=== PATIENT | female | born 1995 | race Hispanic/Latino ===

== ENCOUNTER 2018-10-07 16:38 | Emergency (ER) | payer OTHER, MEDICAID, SELFPAY ==
[2018-10-07 17:05] VITALS: BP 125/80; PULSE 100; RESP 13; TEMP 36.6; O2SAT 99
[2018-10-07 20:44] VITALS: BP 114/78; PULSE 99; RESP 16; TEMP 36.2; O2SAT 100
--- NOTE | 2018-10-07 21:43 | ED_ITS ---
HPI - Headache General Chief Complaint: Headache Stated Complaint: MIGRAINE FOR 1 WEEK Time Seen by Provider: 10/07/18 21:04 Source: patient Mode of arrival: ambulatory Limitations: no limitations History of Present Illness HPI Narrative: Patient has a longstanding history of migraines and states she has had a headache for about a week and a half. She states that the symptoms are consistent with her usual migraines, but that the pain is stronger than usual, and has not abated with Tylenol and ibuprofen. Patient states she has been nauseated but not vomiting. She denies any head injury, fever, nuchal rigidity, or other recent illness. She states that she is otherwise healthy. Patient states she saw a neurologist when she was in her teens, and has been having migraines since she was 11. She states she was tried on many different therapies for migraine, but that none were really effective. The patient states that she has headaches most days, but that they usually resolve on their own or with ibuprofen or Tylenol. She states that it was recommended that she try Botox or acupuncture, but she has chosen not to go that route at this point in time. No other complaints at this time. Patient states that her current headache is about a 710. Light makes worse, as does straining; nothing makes better. Review of Systems Review of Systems All systems reviewed & are unremarkable except as noted in HPI and below Constitutional Denies chills, Denies fever(s), Reports headache(s), Denies lethargy and Denies weakness Eyes Denies change in vision, Denies eye discharge, Denies irritation and Denies loss of vision ENT Ears, Nose, Mouth, and Throat: Denies change in voice, Reports headache(s), Denies neck pain and Denies sore throat Cardiovascular Denies chest pain, Denies irregular heart rhythm, Denies lightheadedness, Denies palpitations, Denies dyspnea, Denies dyspnea on exertion and Denies orthopnea Respiratory Denies cough, Denies dyspnea, Denies dyspnea on exertion and Denies wheezing Gastrointestinal Gastrointestinal: Denies abdominal pain, Denies change in bowel habits, Denies diarrhea, Reports nausea and Denies vomiting Genitourinary Denies hematuria, Denies flank pain, Denies urinary incontinence and Denies urinary urgency Musculoskeletal Denies neck pain Integumentary/Breasts Denies pruritus, Denies erythema, Denies rash and Denies wounds Neurologic Denies confusion, Reports headache(s), Denies loss of vision and Denies weakness Psychiatric Denies anxiety, Denies confusion, Denies depression, Denies homicidal ideation and Denies suicidal ideation Endocrine Denies palpitations Hematologic/Lymphatic Denies easy bruising Allergic/Immunologic Denies wheezing [facility] Medical History Migraine (Acute) Surgical History No pertinent past surgical history (Acute) Social History Smoking Status: Never smoker Exam Initial Vital Signs Initial Vital Signs: Vital Signs Temperature 97.8 F 10/07/18 17:05 Pulse Rate 100 H 10/07/18 17:05 Respiratory Rate 13 10/07/18 17:05 Blood Pressure 125/80 10/07/18 17:05 Pulse Oximetry 99 10/07/18 17:05 Const General: cooperative and well developed Nutritional Appearance: well nourished Orientation: alert, awake, oriented x3 and not confused [facility] Head: normocephalic and atraumatic Ears: external ears normal Nose: external nose normal and No nasal discharge Face and sinus: face symmetric and No dry mucous membranes Mouth: oral mucosae normal and moist mucous membranes Teeth and gingiva: dentition normal Eyes General: appearance normal, both eyes and all related structures Eyelids: eyelids normal Conjunctivae: conjunctivae normal Sclera: sclerae normal Pupils: PERRL EOM: EOM intact bilaterally Neck Neck: normal visual inspection, trachea midline, No lymphadenopathy, No midline deformity and No JVD Lymphatic: No lymphedema Chest Chest: normal inspection of the chest Resp Effort & Inspection: normal respiratory effort, able to speak in complete sentences, no respiratory distress and no use of accessory muscles Auscultation: clear to auscultation bilaterally, no rales, no rhonchi and no wheezes Cardio Rate: regular rate Rhythm: regular rhythm Heart Sounds: no click, no gallops, no murmurs and no rubs Pulses: normal peripheral pulses GI Inspection: non-distended Palpation: soft, no hepatosplenomegaly, No guarding, No pulsatile mass and No tender Back/Spine/Pelvis Back: No CVA tenderness Cervical Spine: cervical ROM normal and No pain with cervical ROM Thoracic/Lumbar Spine: thoracic and lumbar spine normal to inspection Skin General: no rashes or lesions noted, No jaundice and No petechiae Neuro General: alert, oriented x3, gait normal and no focal motor deficits Speech: speech normal Extrem General: full ROM, no clubbing, cyanosis or edema, no pedal edema and no calf tenderness Psych Appearance: well kempt Mental Status: mental status grossly normal Attitude: cooperative Thought Content: normal and suicidality Judgment: judgment good Course Course Narrative: Patient was well appearing in the emergency department, and symptoms were consistent with prior migraines, just worse this time. Patient was treated symptomatically with IV fluids, Benadryl, Zofran, Reglan, and Toradol. She reported improvement in her headache, but was still having significant discomfort, so she was given a dose of Dilaudid in addition to the above. This did eradicating remainder of the patient's discomfort. Patient's symptoms were consistent with the many migraine headaches she had had previously , and I did not feel further workup or intervention was indicated, other than symptomatic relief. We have discussed the usual indications for return, as well as symptomatic management at home. Patient is deemed stable for discharge home. Orders Ordered: Discontinued Medications Diphenhydramine HCl (Benadryl) 25 mg IV NOW ONE Stop: 10/07/18 21:38 Last Admin: 10/07/18 21:47 Dose: 25 mg Hydromorphone HCl (Dilaudid) 1 mg IV NOW ONE Stop: 10/07/18 23:00 Last Admin: 10/07/18 23:06 Dose: 1 mg Sodium Chloride (Normal Saline 0.9%) 1,000 mls @ 1,000 mls/hr IV BOLUS ONE Stop: 10/07/18 22:39 Last Infusion: 10/07/18 23:25 Dose: 0 mls/hr Admin: 10/07/18 21:47 Dose: 1,000 mls/hr Ketorolac Tromethamine (Toradol) 30 mg IV NOW ONE Stop: 10/07/18 21:40 Last Admin: 10/07/18 21:48 Dose: 30 mg Metoclopramide HCl (Reglan) 10 mg IV NOW ONE Stop: 10/07/18 21:40 Last Admin: 10/07/18 21:48 Dose: 10 mg Ondansetron HCl (Zofran) 4 mg IV NOW ONE Stop: 10/07/18 21:40 Last Admin: 10/07/18 21:47 Dose: 4 mg Vital Signs - 8 hr 10/07/18 17:05 10/07/18 20:44 Temperature 97.8 F 97.2 F L Pulse Rate 100 H 99 H Respiratory Rate 13 16 Blood Pressure 125/80 Blood Pressure [Left Arm] 114/78 Pulse Oximetry 99 100 MDM - Headache Medical Records Attestation: I reviewed the patient's medical records. Discharge Plan Departure Patient Disposition: Home Clinical Impression: Migraine Discharge Date/Time: 10/08/18 00:03 Interventions: ED Discharge Assessment Last Done: 10/08/18 00:02 Instructions: DI for Migraine Referrals: Cassia Mckeon MD [Primary Care Provider] -
[2018-10-07] MEDS: SODIUM CHLORIDE 0.9% 1,000 ML 1000 ML IV (21:47)
[2018-10-07] MEDS: diphenhydrAMINE 50 MG/ML VIAL 25 MG IV (21:47)
[2018-10-07] MEDS: ONDANSETRON 4 MG/2 ML INJ IV (21:47)
[2018-10-07] MEDS: KETOROLAC 60 MG/2 ML VIAL 30 MG IV (21:48)
[2018-10-07] MEDS: METOCLOPRAMIDE 10 MG/2 ML INJ IV (21:48)
[2018-10-07] MEDS: HYDROMORPHONE 1 MG INJ IV (23:06)
[2018-10-07 23:09] VITALS: BP 102/64; PULSE 78; RESP 16; O2SAT 100
[2018-10-08 00:02] VITALS: BP 92/58; PULSE 86; RESP 16; TEMP 36.6; O2SAT 100
== END 2018-10-08 00:03 | disposition home or self-care (01) ==
PROVIDERS: Emergency Provider Emergency Medicine; PCP Family Medicine
DX: G43.009 Migraine without aura, not intractable, without status migrainosus (principal)
CPT/HCPCS: 36591; 96361; 96374; 96375; 99283; 99284; J1170; J1200; J1885; J2405; J2765

== ENCOUNTER 2025-09-02 07:12 | Emergency (ER) | payer OTHER, SELFPAY ==
[2025-09-02] VITALS (29 sets, daily range): BP systolic 122–143; BP diastolic 76–102; PULSE 78–92; RESP 12–26; TEMP 36.9; O2SAT 94–100; BMI 37.8
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
--- NOTE | 2025-09-02 07:21 | DI.RAD.S_ITS ---
PROCEDURE: XR ELBOW LT MIN 3V INDICATIONS: L elbow pain TECHNIQUE: 3 views of the elbow were acquired. COMPARISON: None. FINDINGS: Bones: No fractures or dislocations. No suspicious bony lesions. Soft tissues: No elbow joint effusion. No suspicious soft tissue calcifications. IMPRESSION: No acute bony abnormality or significant joint effusion. Dictated by: Joe Zaman M.D. on 09/02/2025 at 8:22 Approved by: Joe Zaman M.D. on 09/02/2025 at 8:22
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
[2025-09-02] MEDS: fentaNYL 100 MCG/2 ML INJ 50 MCG IV (07:33)
[2025-09-02 07:51] LABS: INR 1.0 (0.9-1.3); Prothrombin Time 11.7 SECONDS (9.4-12.5)
[2025-09-02 07:54] LABS: PTT Partial Thromboplastin Tim 31 SECONDS (25.1-36.5)
[2025-09-02 07:55] LABS: Add Manual Diff / Slide Review NO; Alanine Aminotransferase 21 IU/L (<35); Albumin 5.3 g/dL (3.5-5.0); Albumin Globulin Ratio 1.7 (1.0-2.8); Alkaline Phosphatase 94 U/L (38-126); Blood Urea Nitrogen 12 mg/dL (7-17); Calcium 9.5 mg/dL (8.4-10.2); Carbon Dioxide 23 mmol/L (22-32); Chloride 105 mmol/L (98-107); Estimated Glomerular Filt Rate > 60 mL/min (>60); Ethanol (ETOH) < 10 mg/dL (<10); Globulin 3.1 g/dL (1.7-4.1); Glucose 100 mg/dL (70-99); HEMOLYSIS < 15 (0-50); Hematocrit 43.4 % (36-46); Hemoglobin 15.1 g/dL (12.0-16.0); Lactate (Lactic Acid) 2.1 mmol/L (0.7-2.1); Lipase 71 U/L (23-300); Lymphocytes Absolute Auto 2800 /uL (1100-4500); Mean Corpuscular HGB Conc 34.9 % (30-36); Mean Corpuscular Hemoglobin 30.3 PG (26-34); Mean Corpuscular Volume 86.8 fL (80-100); Platelet Count 511 X10^3/uL (150-400); Potassium 4.2 mmol/L (3.4-5.1); Sodium 140 mmol/L (137-145); Total Protein 8.4 g/dL (6.3-8.2)
--- NOTE | 2025-09-02 07:59 | DI.RAD.S_ITS ---
PROCEDURE: XR TIBIA FUBULA RT 2V INDICATIONS: r ankle/tib pain TECHNIQUE: 2 views of the tibia and fibula were acquired. COMPARISON: [facility], CR, XR ANKLE RT 2V, 09/02/2025, 7:51. FINDINGS: Bones: Mildly displaced comminuted oblique distal fibular shaft fracture with likely associated syndesmosis injury. No proximal fracture or dislocation. Tibia intact. Soft tissues: No suspicious soft tissue calcifications or masses. Soft tissue swelling. IMPRESSION: Distal fibular fracture. Dictated by: Minesh Gomes M.D. on 09/02/2025 at 8:25 Approved by: Minesh Gomes M.D. on 09/02/2025 at 8:27
[2025-09-02] MEDS: TET,DIPH,PERTUSS(ACELL),VAC/PF 0.5 ML SYRINGE IM (09:01)
[2025-09-02 09:15] LABS: Reflexed Lactate in 2 Hours Y
[2025-09-02] MEDS: BACITRACIN OINT 0.9 GM PCKT 2 APPLIC TOP (09:18)
[2025-09-02 10:34] LABS: Lactate 2HR (Lactic Acid Rflx) 1.1 mmol/L (0.7-2.1)
== END 2025-09-02 10:46 | disposition home or self-care (01) ==
PROVIDERS: Emergency Provider Emergency Medicine
DX: S82.831A Other fracture of upper and lower end of right fibula, initial encounter for closed fracture (principal); R51.9 Headache, unspecified; V03.10XA Pedestrian on foot injured in collision with car, pick-up truck or van in traffic accident, initial encounter; Y92.410 Unspecified street and highway as the place of occurrence of the external cause; Z23 Encounter for immunization
CPT/HCPCS: 29515; 70450; 71045; 71275; 72125; 73080; 73552; 73562; 73590; 73610; 74177; 80053; 80320; 83605; 83690; 85025; 85610; 85730; 90471; 96374; 96375; 96376; 99285; 90715; J1171; J3010; Q9967

== ENCOUNTER 2025-09-10 09:24 | Day surgery (SDC) | payer OTHER, SELFPAY ==
[2025-09-09 10:43] VITALS: BMI 38.5
[2025-09-10] VITALS (12 sets, daily range): BP systolic 105–140; BP diastolic 59–81; PULSE 78–96; RESP 11–16; TEMP 36.3–37.1; O2SAT 92–97
[2025-09-10] MEDS: ACETAMINOPHEN 325 MG TABLET 975 MG PO (10:17)
[2025-09-10] MEDS: LACTATED RINGERS 1,000 ML 42 ML IV ×2 (10:18→13:09)
--- NOTE | 2025-09-10 10:58 | PM.PREOP ---
Pre-operative Note Interval Note History & Physical reviewed/Exam performed by Physician: Yes Changes to H&P: No
--- NOTE | 2025-09-10 11:50 | SUR.OPER ---
Supine on padded OR bed, head on pillow, arms secured on padded arm boards at <90 degrees abduction, legs uncrossed, safety belt at waist, tape over blanket over lower non-operative leg. Bump under right hip per surgeon direction. Operative leg supported with bone foam. Surgeon approved final position prior to start of procedure.
--- NOTE | 2025-09-10 13:27 | DI.RAD.S_ITS ---
PROCEDURE: XR ANKLE RT MIN 3V INDICATIONS: ORIF RIGHT ANKLE TECHNIQUE: 3 fluoroscopic intraoperative views of the ankle were acquired. COMPARISON: [facility], CR, XR ANKLE RT 2V, 09/10/2025, 14:24. [facility], CR, XR ANKLE RT MIN 3V, 09/09/2025, 7:36. FINDINGS: Intraoperative fluoroscopic support for ORIF distal fibular fracture and distal syndesmotic injury repair with soft tissue anchor. IMPRESSION: Intraoperative fluoroscopic support for ORIF distal fibular fracture and distal syndesmotic injury repair. No acute hardware complication. Please see separate procedure note for further details. Approved by: Pako Martínez M.D. on 09/11/2025 at 13:55
--- NOTE | 2025-09-10 14:20 | DI.RAD.S_ITS ---
PROCEDURE: XR ANKLE RT 2V INDICATIONS: Post-Operative Imaging TECHNIQUE: 2 views of the ankle were acquired. COMPARISON: [facility], CR, XR ANKLE RT MIN 3V, 09/09/2025, 7:36. [facility], CR, XR ANKLE RT MIN 3V, 09/10/2025, 11:41. FINDINGS: Bones: Status post open reduction and internal fixation of distal right fibular fracture with lateral plate and screw fixation. Distal syndesmosis fixation with soft tissue anchor also noted. Postsurgical alignment appears near anatomic. No acute hardware complications. Soft tissues: No tibiotalar joint effusion. Achilles tendon appears normal. IMPRESSION: Postsurgical changes from surgical fixation of distal syndesmosis and distal fibular fracture without evidence for hardware complication. Dictated by: Pako Martínez M.D. on 09/10/2025 at 16:01 Approved by: Pako Martínez M.D. on 09/10/2025 at 16:04
[2025-09-10] MEDS: ONDANSETRON 4 MG/2 ML INJ IV (14:31)
--- NOTE | 2025-09-10 15:31 | SUR.PHASEI ---
Block start time [1518] . Monitoring initiated and maintained throughout procedure. Oxygen and medications given per anesthesiologist instructions. Patient remained stable throughout procedure, no adverse reactions noted. Block end time [1527].
--- NOTE | 2025-09-10 15:59 | P.OP_ITS ---
Operative Date/Time/Diagnoses Date of procedure: 09/10/25 Time of procedure: 12:00 Pre-op diagnosis: Right ankle fracture Post-op diagnosis: same Procedure & Clinicians Procedure: Open reduction internal fixation of the right ankle fracture and syndesmosis Same procedure(s) as scheduled: Yes Surgeon: Steve Mcgee Assisted?: Yes Claims Support Specialist: Dara Ross Anesthesia Type: General Operative Notes Findings: Unstable right ankle fracture, syndesmosis injury Closure Type: primary Specimen(s): none sent Applied: cast(s) Estimated Blood Loss (mL): 50 Blood products transfused: none Tourniquet time (min): 120 Procedure in detail: Laterality: Right Preoperative diagnosis: Unstable right ankle fracture Procedure performed: Open Reduction Internal Fixation of Ankle Fracture; and syndesmotic repair Postoperative diagnosis: Same Primary Surgeon: Steve Mcgee MD Secondary Surgeon: Swati Anesthesia: General EBL: 50 ml Tourniquet: 120 minutes @ 250 mmHg Implants: Arthrex 2.7 mm cortical lag screws, Arthrex 10 hole plate and 3.5 cortical and 4.0 cancellous screws; Arthrex tight rope Indication For Surgery: The patient sustained an unstable ankle fracture which required surgery to restore stability and anatomic length, alignment, and rotation. The risks, benefits, and alternatives were discussed. Risks include pain, bleeding, infection, damage to nearby structures and cartilage, lack of symptom relief, malunion, nonunion, implant complications with need for removal, need for further surgery, DVT, PE, stroke, and . Written consent was obtained. Examination Under Anesthesia: An unstable ankle Operative Findings: Comminuted distal fibular shaft fracture. Obvious medial clear space widening despite fibular fracture fixation Procedure in Detail: The patient was met in the pre-operative hold area. Consent was verified and operative extremity was signed. The patient then met with anesthesia and was brought back to the operating room. The patient was placed supine on the operating table. A general anesthetic was administered. The extremity was then prepped and draped in the usual sterile fashion. A timeout was performed per protocol. All were in agreement and we proceeded. A direct lateral approach to the lateral malleolus was made. Sharp dissection was carried out distally and scissor dissection proximally. The superficial peroneal nerve was sought out but not seen during the case. The fracture site was identified. The fracture was comminuted but there are 3 main fragments. The middle fragment was a butterfly fragment. And 2mm of periosteum was freed to allow for an adequate assessment of fracture reduction. Hematoma and blocks to reduction were removed from the fracture site. The fracture site was irrigated. The 3 fragments were realigned utilizing various crab claws and poi nt-to-point reduction tools. Once we had clinical realignment they were also checked on AP and lateral fluoroscopy. A 2.7mm lag screw was placed perpendicular to the more proximal 2 fragments, compressing the fracture site nicely. This was then repeated for the butterfly fragment and distal fragment. These 2 lag screws then held the fibula out to length and near anatomic reduction of the fracture fragments. A 10 hole 1/3 tubular plate was placed laterally and the position was confirmed with fluoroscopy. The plate was cheated slightly posteriorly to allow for the appropriate trajectory in the case syndesmosis fixation was needed. The plate was secured with screws proximally and distally. Despite adequate fixation of the distal fibular fracture there was continued to be medial clear space widening. With mild lateral to medial force of the calcaneus the joint was adequately reduced. At that point it was decided that she would require a syndesmotic fixation. A K-wire was placed from lateral to medial utilizing 1 of the screw holes in the plate. This trajectory was confirmed on AP and lateral fluoroscopy. We then over-reamed the K-wire and the implant was placed. The sutures were then tightened down bringing the lateral button within the hole of the plate. Final images were taken. There was also a stress test provided showing that there was no further medial clear space widening with a stress test. The wound was closed in a layered fashion with 0-vicryl in the deep tissues, covering the plate, 2-0 in the dermis, and horizontal nylon in the skin. The patient was quite edematous and made the closure challenging. However we are able to get the skin completely closed. Local anesthetic was placed. A sterile dressing and splint were applied. The patient was awakened and transferred to the recovery room. Postoperative Plan: Same day surgery discharge NWB with splint for 2 weeks Follow up in 2 weeks Steve Mcgee MD Complications: none Post-operative Condition: stable Disposition: PACU
== END 2025-09-10 16:36 | disposition home or self-care (01) ==
PROVIDERS: Referring Provider Orthopaedic Surgery; Visit Provider Orthopaedic Surgery
PROC: 0SSF04Z Reposition Right Ankle Joint with Internal Fixation Device, Open Approach (ICD-10-PCS; CPT 27792; principal; 2025-09-10 11:15)
DX: S82.451A Displaced comminuted fracture of shaft of right fibula, initial encounter for closed fracture (principal); S82.891A Other fracture of right lower leg, initial encounter for closed fracture; V03.10XA Pedestrian on foot injured in collision with car, pick-up truck or van in traffic accident, initial encounter; G89.18 Other acute postprocedural pain
CPT/HCPCS: 27792; 27829; 64450; 73600; 73610; 76000; 82962; C1713; J0689; J1100; J1171; J2250; J2405; J2704; J3010; J7120